=== PATIENT | male | born 1955 | race African-American/Black ===

== ENCOUNTER 2020-08-11 18:37 | Inpatient (IN) | payer MEDICARE, OTHER ==
[~2020-08-11] VITALS: Ht 180.3 cm; Wt 123.8 kg
[2020-08-11] MEDS ORDERED: SERT50TA PO (18:43)
[2020-08-11] MEDS ORDERED: HYDR25TA4 PO (18:43)
[2020-08-11] MEDS ORDERED: [UNRECOGNIZED DRUG - CODE] PO (18:43)
[2020-08-11] MEDS ORDERED: LORA-259 PO (18:43)
[2020-08-11] MEDS ORDERED: CLON0.1T PO (18:43)
[2020-08-11] MEDS ORDERED: DIVA-78 PO (18:43)
[2020-08-11] MEDS ORDERED: HALO5TAB PO (18:43)
[2020-08-11] MEDS ORDERED: MAGNESIUM HYDROXIDE 30 ML UDC PO PRN (20:00)
[2020-08-11] MEDS ORDERED: ZOLPIDEM TARTRATE 5 MG TABLET PO PRN (20:00)
[2020-08-11] MEDS ORDERED: ACETAMINOPHEN 325 MG TABLET PO PRN (20:00)
[2020-08-11] MEDS ORDERED: MAG HYDROX/AL HYDROX/SIMETH 30 ML UDC PO PRN (20:00)
[2020-08-11 20:03] VITALS: BP 150/90
--- NOTE | 2020-08-11 20:12 | NUR ---
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 PATIENT COVERED HIS BODY & HAS A MASK ON, SKIN IS NOT VISIBLE AT THIS TIME. GETS AGITATED VERY EASILY, UNCOOPERATIVE, AGGRESSIVE, NON COMPLAINT, LABILE, HYPERVERBAL, PARANOID, TALKS TO HIMSELF, LOUD, PATIENT BECAME MORE AGGRESSIVE & AGITATED WHEN RE-APPROACHED TO EXPLAIN ANYTHING. CALMS DOWN WHEN GAVE SPACE. WILL CONTINUE TO MONITOR FOR MOOD, SAFETY & BEHAVIOR.
[2020-08-11] MEDS ORDERED: BLOOD SUGAR DIAGNOSTIC 1 EACH STRIP IN ONE (21:00)
[2020-08-11] MEDS ORDERED: OLANZAPINE 10 MG VIAL IM ONE (21:30)
--- NOTE | 2020-08-11 21:31 | NUR ---
GPS RN NOTE, PATIENT IS REQUESTING INJECTION AT THIS TIME. OFFERED PO ATIVAN 1 MG PO Q6HR PRN 3 TIMES AND STILL PATIENT REFUSED STATING, " NO I DON'T WON'T A PILL GIVE ME A AN INJECTION TO HELP ME SLEEP ". PAGED DR ORTIZ AND INFORMED HER OF MY FINDINGS. DR ORTIZ ORDERED ZYPREXA 10 MG IM ONCE. ALL ORDERS NOTED AND CARRIED OUT WILL CONTINUE TO MONITOR THIS PATIENT WITH THE HELP OF STAFF.
--- NOTE | 2020-08-11 21:48 | NUR ---
GPS RN NOTE, PATIENT IS STILL REQUESTING INJECTION. LESS RESTRICTIVE MEASURES ATTEMPTED IE DIVERSION, 1 TO 1 INTERACTION, OFFERED PO MEDICATION, AND REORIENTATION WAS TRIED WITH NO POSITIVE EFFECT. DR ORTIZ ORDERED ZYPREXA 10MG IM ONCE. GAVE ZYPREXA 10 MG IM ONCE IN HIS LEFT VENTROGLUTEAL WITH THE HELP OF STAFF AND SECURITY ON STAND BY. PATIENT TOLERATE PROCEDURE WELL WITH OUT INCIDENT. ALL ORDERS NOTED AND CARRIED OUT WILL CONTINUE TO MONITOR THIS PATIENT.
[2020-08-11 22:10] VITALS: BP 145/80
--- NOTE | 2020-08-11 23:08 | NUR ---
ADMISSION NOTES: ADMITTED THIS 65Y/O MALE PATIENT DIRECT ADMIT FROM [facility] , PT. ADMITTED TO GPS ON 5150 GD , DTO HOLD , PER HOLD, PT. AGGRESSIVE TOWARDS STAFF AND SELF HARM IDEATIONS AND HE WANTS TO DISAPPEARS , NON COMPLIANT WITH MEDS NOT LISTING TO DIRECTIONS AND REAPTING HE WILL KILL HIMSELF IF DISCHARGED,UPON FACE TO FACE ASSESSMENT PATIENT IS A&O X ,3 ,ANXIOUS,HYPERVERBAL,LOUD TALIKG TO SELF ,MANIC, DELUSIONAL ,DISORGNIZED,GUARDED, DISHEVELLED , UNCOOPERTIVE, UNPREDICTABLE , RACES , USING UNAPPROPRIATE LANGUAGE WITH STAFF, NEEDY DEMENDING , NOT FOLLOWING DIRECTIONS, DENIES SI /HI AT THIS TIME, PT. IS POOR HISTORIAN, POOR INSIGHT ,POOR JUDGEMENT , PT. REFUSED TO SIGNS ADMISSION CONSENT PAPERS ,DUE TO ANGERY, REFUSED FACE PHOTO FOR CHART, REFUSED SKIN ASSESSMENT,ENCOURGED X3 PT. STRONGLY REFUSED, BOTH MD AWARE AND NOTIFIED OF THE ADMISSION, BELONGINGS CONTRABAND WERE DONE ,PT. RIGHTS DISCUSS BY SYSTEM ARCHIVE ANALYST , PROVIDE THE PT. WITH HANDBOOK, AND MEDICATIONS GUIDE, ENVIRONMENTAL SAFETY CHECK DONE, ENCOURAGED PT. VERBALIZED ANY FEELING CONCERN TO STAFF, ORIENT TO UNIT POLICY, NO ACUTE DISTRESS NOTED,VITAL SIGNS WNL ,DENIES ANY PAIN AT THIS TIME,WILL CONTINUE TO MONITOR FOR Q15 SAFETY AND BEHAVIOR.
--- NOTE | 2020-08-12 05:51 | NUR ---
RN NOTE: REFUSED SKIN ASSESSMENT PT. REFUSED SKIN ASSESSMENT X 3 DESPITE OF RISKS & BENEFIT EXPLANATIONS, GETS AGITATED VERY EASILY, UNCOOPERATIVE, NON COMPLAINT, LABILE, HYPERVERBAL, PARANOID, WILL CONTINUE TO MONITOR FOR MOOD, SAFETY & BEHAVIOR.
[2020-08-12] MEDS ORDERED: OLANZAPINE 10 MG VIAL IM ONE (06:30)
--- NOTE | 2020-08-12 06:34 | NUR ---
GPS RN NOTE, PATIENT THREATENING PHYSICAL HARM TO STAFF, DELUSIONAL, AGITATED, YELLING, AND LESS RESTRICTIVE MEASURES ATTEMPTED IE DIVERSION, OFFERED PO MEDICATION, 1 TO 1 INTERACTION, AND REORIENTATION WAS TRIED WITH NO POSITIVE EFFECT. PAGED DR ORTIZ AND INFORMED HER OF MY FINDINGS. DR ORTIZ ORDERED ZYPREXA 10MG IM ONCE. PATIENT GIVEN AFOREMENTIONED MEDICATION IN HIS RIGHT VENTROGLUTEAL WITH THE HELP OF STAFF AND SECURITY. PATIENT TOLERATE PROCEDURE WELL. ALL ORDERS NOTED AND CARRIED OUT WILL CONTINUE TO MONITOR THE PATIENT.
[2020-08-12 07:57] LABS: BASOPHILS # (AUTO) 0.1 /CMM (0.0-0.2); BASOPHILS % (AUTO) 0.9 % (0.0-2.0); EOSINOPHILS % (AUTO) 1.7 % (0.0-6.0); HEMATOCRIT 43 % (39-51); HEMOGLOBIN 14.1 g/dL (13.5-17.5); LYMPHOCYTES # (AUTO) 2.3 /CMM (0.8-4.8); LYMPHOCYTES % (AUTO) 35.3 % (20.0-44.0); MEAN CORPUSCULAR HGB CONC 33 g/dl (31.0-36.0); MEAN CORPUSCULAR VOLUME 92 fL (80-96); MONOCYTES # (AUTO) 1.1 /CMM (0.1-1.30); MONOCYTES % (AUTO) 17.1 % (2.0-12.0); NEUTROPHILS # (AUTO) 2.9 /CMM (1.8-8.9); PLATELET COUNT (AUTO) 245 /CMM (150-450); RED BLOOD CELL COUNT(AUTO) 4.63 MIL/uL (4.5-6.0); WHITE BLOOD COUNT (AUTO) 6.5 K/uL (4.3-11.0)
[2020-08-12 08:00] VITALS: BP 118/77
[2020-08-12 08:12] LABS: CREATININE 1.1 mg/dL (0.6-1.3); POTASSIUM 3.9 mmol/L (3.5-5.1)
[2020-08-12] MEDS: LORAZEPAM 1 MG TABLET PO PRN (08:36)
[2020-08-12] MEDS: HYDROCHLOROTHIAZIDE 25 MG TABLET PO SCH (08:37)
--- NOTE | 2020-08-12 08:37 | NUR ---
GPS RN NOTE PATIENT IS ANXIOUS, AGITATED, SCREAMING. LORAZEPAM 1MG PRN GIVEN. WILL CONTINUE BEHAVIOR Q15 FOR BEHAVIOR AND SAFETY.
[2020-08-12] MEDS ORDERED: OLANZAPINE 10 MG VIAL IM STA (09:40)
[2020-08-12] MEDS ORDERED: LORAZEPAM INJ 2 MG/ML VIAL IM STA (09:40)
--- NOTE | 2020-08-12 09:56 | NUR ---
GPS RN NOTE PATIENT IS DELUSIONAL, AGITATED, YELLING AND SCREAMING. TELLING THE STAFF PROSTITUTES AND SAYING "I DON'T TRUST YOU" RUNSTITCHING MACHINE OPERATOR INFORMED DR ORTIZ. DR ORTIZ ORDERED ZYPREXA 10MG IM ONCE AND LORAZEPAM 1MG IM. ADMINISTERED MEDS TO LEFT VENTROGLUTEAL WITH THE HELP OF STAFF AND SECURITY. ALL ORDERS NOTED AND CARRIED OUT WILL CONTINUE TO MONITOR Q15 FOR PATIENT'S BEHAVIOR AND SAFETY. Addendum: 08/12/20 at 1049 by REZA DICKEY RN PT VOLUNTARILY ASKED FOR THE SHOT. IS MADE AWARE. PT ACCEPTED THE INJECTION WITHOUT PHYSICAL HOLD. BP 120/76 WI 84 RR 16 SA02 95%
[2020-08-12 11:29] LABS: EOSINOPHILS % (MANUAL) 2 % (0-4); LYMPHOCYTES % (MANUAL) 40 % (16-48); MONOCYTES % (MANUAL) 15 % (0-11.0); NEUTROPHILS % (MANUAL) 43 (42-76)
[2020-08-12 12:42] LABS: ALBUMIN 3.5 g/dL (3.4-5.0); BILIRUBIN,DIRECT 0.1 mg/dL (0.0-0.2); BILIRUBIN,TOTAL 0.3 mg/dL (0.2-1.0); TOTAL PROTEIN, SERUM 7.7 g/dL (6.4-8.2)
[2020-08-12 16:00] VITALS: BP 95/64
[2020-08-12] MEDS: DIVALPROEX SODIUM 500 MG TABLET.DR PO SCH (18:56)
[2020-08-12 20:00] VITALS: BP 114/56
[2020-08-12] MEDS: BENZTROPINE MESYLATE (1 MG) 1 MG TABLET PO SCH (21:00)
[2020-08-12] MEDS: risperiDONE 1 MG TABLET PO SCH (21:00)
--- NOTE | 2020-08-12 21:41 | NUR ---
Pt refused 2100 meds Cogentin 1 mg and Risperdal 2 mg po. Offered x 3 and explained risk and benefits. Still refused. Pt states, "i dont want to take any medications." Charge nurse RN aware. Will continue to monitor. Frequent visual check done for safety.
[2020-08-13 08:00] VITALS: BP 149/93
[2020-08-13] MEDS: HYDROCHLOROTHIAZIDE 25 MG TABLET PO SCH (08:04)
[2020-08-13] MEDS: BENZTROPINE MESYLATE (1 MG) 1 MG TABLET PO SCH ×2 (08:04→21:00)
[2020-08-13] MEDS: DIVALPROEX SODIUM 500 MG TABLET.DR PO SCH ×3 (08:04→16:30)
[2020-08-13] MEDS: risperiDONE 1 MG TABLET PO SCH ×2 (08:08→16:31)
--- NOTE | 2020-08-13 09:00 | NUR ---
RN NOTE- LABILE INTRUSIVE LOUD REQUESTING RX, NAME CALLING AND PROFANITY EXPRESSED. PO INTAKE GOOD DISORGANIZED AND PSYCHOTIC
--- NOTE | 2020-08-13 09:05 | NUR ---
RN NOTE- PT ESCALATING. REQUESTING IM RX. DR ORTIZ ORDERED ZYPREXA 10 MG AND ATIVAN 1 MG IM STAT. COMPLIED
[2020-08-13] MEDS ORDERED: OLANZAPINE 10 MG VIAL IM STA (09:09)
[2020-08-13] MEDS ORDERED: LORAZEPAM INJ 2 MG/ML VIAL IM STA (09:09)
--- NOTE | 2020-08-13 09:36 | NUR ---
RN NOTE- EMERGENCY IM RX ADMINISTERED. ZYPREXA 10 MG AND ATIVAN 1 MG . ADMINISTERED W STAFF ASSIST. WASTED 1 MG ATIVAN W RAFAELA RN. DID NOT SCAN . DISPOSED OF VIALS BEFORE SCANNING.
[2020-08-13 16:00] VITALS: BP 135/90
[2020-08-13 20:00] VITALS: BP 132/65
[2020-08-13] MEDS: OLANZAPINE 10 MG TABLET PO SCH (21:23)
--- NOTE | 2020-08-13 21:23 | NUR ---
GPS-RN NOTE: MEDICATION REFUSAL PATIENT REFUSED TO TAKE ZYPREXA AND CONGENTIN AT 2100. EDUCATED PATIENT REGARDING MEDICATION COMPLIANCE BUT PATIENT CONTINUED TO REFUSE AND BECAME AGITATED WHEN OFFERING SCHEDULED MEDS.
[2020-08-14 08:00] VITALS: BP 128/77
[2020-08-14] MEDS: HYDROCHLOROTHIAZIDE 25 MG TABLET PO SCH (08:49)
[2020-08-14] MEDS: BENZTROPINE MESYLATE (1 MG) 1 MG TABLET PO SCH ×2 (08:49→21:00)
[2020-08-14] MEDS: DIVALPROEX SODIUM 500 MG TABLET.DR PO SCH ×4 (08:49→17:06)
[2020-08-14] MEDS: risperiDONE 1 MG TABLET PO SCH ×3 (08:49→17:07)
--- NOTE | 2020-08-14 10:00 | NUR ---
[facility] Contact: SW called [facility] ([phone]) and spoke to Corrie who stated that the pt has not been in their facility for 7 years.
--- NOTE | 2020-08-14 10:05 | NUR ---
[facility] Contact: SW called [facility] ([phone]) and was unable to make contact with the admissions department to verify the pts residence.
--- NOTE | 2020-08-14 10:10 | NUR ---
Initial Discharge Plan: Pt cannot verify where he came from and SW is also unable to do the same at this time. TONY will work with the pt and the MD regarding appropriate discharge planning, SW will form a safe and proper discharge plan.
--- NOTE | 2020-08-14 13:28 | NUR ---
RN NOTE: MEDICATION REFUSAL PT REFUSED 1300 DEPAKOTE. ATTEMPTED TO EDUCATE PT RE IMPORTANCE OF MEDICATION COMPLIANCE. PT CONT'D TO REFUSE X 3.
[2020-08-14 16:00] VITALS: BP 135/80
--- NOTE | 2020-08-14 17:14 | NUR ---
RN NOTE: MEDICATION REFUSAL PT REFUSED 1700 RISPERDAL AND DEPAKOTE. ATTEMPTED TO EDUCATE PT RE IMPORTANCE OF MEDICATION COMPLIANCE. PT CONT'D TO REFUSE X 3. PT IS PARANOID "HOW CAN I TRUST YOU. I AM IN [place] [employer]. THEY TRIED TO GIVE ME A SEX CHANGE AND MAKE ME CAICEDO".
[2020-08-14 20:15] VITALS: BP 125/63
[2020-08-14] MEDS: OLANZAPINE 10 MG TABLET PO SCH (22:00)
[2020-08-15 08:00] VITALS: BP 151/86
[2020-08-15] MEDS ORDERED: OLANZAPINE 10 MG VIAL IM STA (08:01)
--- NOTE | 2020-08-15 08:02 | NUR ---
RN NOTE- PT HYPERSEXUAL AND INAPPROPRIATE W STAFF. NOT REDIRECTABLE, ESCORTED TO ROOM AND INFORMED OF HIS BEHAVIOR BEING INAPPROPRIATE. PT USING PROFANITY W THIS RN. DR ORTIZ NOTIFIED. ORDERED ZYPREXA 10 MG IM STAT. COMPLIED
[2020-08-15] MEDS: HYDROCHLOROTHIAZIDE 25 MG TABLET PO SCH (08:17)
[2020-08-15] MEDS: BENZTROPINE MESYLATE (1 MG) 1 MG TABLET PO SCH ×2 (08:17→21:00)
[2020-08-15] MEDS: risperiDONE 1 MG TABLET PO SCH ×3 (08:17→16:12)
[2020-08-15] MEDS: DIVALPROEX SODIUM 500 MG TABLET.DR PO SCH (08:17)
--- NOTE | 2020-08-15 08:30 | NUR ---
RN NOTE: MEDICATION REFUSAL AND EMERGENCY IM PT REFUSED ALL 0900 MEDICATIONS. PT SEXUALLY INAPPROPRIATE WITH STAFF. VERBALLY ABUSIVE AND THREATENING DIAL SCREW ASSEMBLER. PT REQUESTING A "SHOT". EMERGENCY IM ZYPREXA 10MG ADMINISTERED TO RIGHT GLUTEUS. PT JOHN WELL
[2020-08-15] MEDS: VALSARTAN 80 MG TABLET PO SCH (12:00)
--- NOTE | 2020-08-15 12:29 | NUR ---
DPOA Contact: TONY called the pts DPOA, Mack ([phone]), and left a voicemail stating that the TONY would like to discuss the pts treatment with him. Addendum: 08/15/20 at 1231 by TONY HAMILTON Alejandro
--- NOTE | 2020-08-15 12:32 | NUR ---
Payee Contact: TONY called the pts payee, Mack ([phone]), who stated that the pt resides at his facility located at [address] [place] [address] and states that it is an independent assisted living. SW recommended that when there is a discharge date he can come and assess the pt. SW also stated that the plan is to Riese the pt and then provide a long acting shot that he would need to follow up. Pts payee stated that shot has helped a lot of his residents. SW stated that she will remain in contact with him.
[2020-08-15] MEDS ORDERED: OXCARBAZEPINE 150 MG TABLET PO SCH (13:00)
[2020-08-15] MEDS: OXCARBAZEPINE 150 MG TABLET PO SCH ×3 (13:00→16:12)
[2020-08-15] MEDS ORDERED: OXCARBAZEPINE 150 MG TABLET PO ONE (13:30)
[2020-08-15 16:00] VITALS: BP 142/81
--- NOTE | 2020-08-15 19:41 | NUR ---
RN NOTE PATIENT IS SLEEPING AT THIS TIME & REFUSED VITALS.
--- NOTE | 2020-08-15 21:36 | NUR ---
GPS-RN NOTE: MEDICATION REFUSAL PATIENT REFUSED TO TAKE COGENTIN AT 2100. EDUCATED PATIENT REGARDING MEDICATION COMPLIANCE BUT PATIENT CONTINUED TO REFUSE AND BECAME AGITATED WHEN OFFERING SCHEDULED MEDS.
[2020-08-15] MEDS: OLANZAPINE 10 MG TABLET PO SCH (22:27)
--- NOTE | 2020-08-15 22:50 | NUR ---
RN NOTE PATIENT HAD PLENTY OF SNACK & PO FLUIDS AT THIS TIME & TOLERATED WELL.
[2020-08-16] MEDS ORDERED: VITAMINS A AND D 56.7 GM TUBE TP PRN ×2 (02:30→08:25)
[2020-08-16 08:00] VITALS: BP 138/74
[2020-08-16] MEDS: VALSARTAN 80 MG TABLET PO SCH (08:29)
[2020-08-16] MEDS: OXCARBAZEPINE 150 MG TABLET PO SCH ×3 (08:30→17:04)
[2020-08-16] MEDS: risperiDONE 1 MG TABLET PO SCH ×3 (08:30→17:04)
[2020-08-16] MEDS: BENZTROPINE MESYLATE (1 MG) 1 MG TABLET PO SCH ×2 (08:30→21:25)
--- NOTE | 2020-08-16 10:07 | NUR ---
Pt. refused Echocardiogram, explained on the importance and still refusing and verbally abusive.
[2020-08-16] MEDS: VITAMINS A AND D 56.7 GM TUBE TP SCH ×2 (13:09→17:47)
--- NOTE | 2020-08-16 13:29 | NUR ---
Group Note: SW encouraged the pt to attend group therapy on 08/16/20 at 1pm regarding the topic of discharge planning and the pt refused to attend. SW then conducted an individual intervention at bedside. Pt informed the SW that he wanted to be discharged to an alternate facility and stated, "I want a place with a big tub. I cannot pay for a swimming pool." SW stated that she will secure alternate placement.
[2020-08-16 16:00] VITALS: BP 134/77
--- NOTE | 2020-08-16 19:30 | NUR ---
GPS RN NOTE, RECEIVED PATIENT AWAKE AND IN BED, NO S/S OR COMPLAINTS OF PAIN AT THIS TIME. PATIENT IS DISPLAYING NO S/S OF APPARENT DISTRESS AT THIS TIME. PATIENT BREATHING IS UNLABORED WITH EQUAL RISE AND FALL OF THE CHEST. PATIENT IS ALERT AND ORIENTED X 1-2 ON ROOM AIR WITH A SPO2 99%. PATIENT IS COMPLIANT WITH MEDICATIONS AT TIMES, HYPERVERBAL, ANXIOUS AT TIMES, VERBALLY ABUSIVE TOWARD STAFF, NEEDY, NEEDS REDIRECTION, AND COOPERATIVE. PATIENT DENIES SUICIDAL AND HOMICIDAL IDEATIONS AT THIS TIME. PATIENT ASSISTED WITH TURNING AND REPOSITIONING Q2HR AND PRN FOR COMFORT AND CIRCULATION. PATIENT HAS NO NEEDS AT THIS TIME. PATIENT EDUCATED ON THE USE OF THE CALL PITTS. PATIENT BED SIDE RAILS UP X 2 FOR SAFETY. PATIENT BED IS LOCKED, LOW, WITH BED ALARM ON. WILL CONTINUE TO MONITOR THIS PATIENT Q15 MINUTES WITH THE HELP OF STAFF TO MAINTAIN SAFETY.
[2020-08-16 19:40] VITALS: BP 129/73
[2020-08-16] MEDS: OLANZAPINE 10 MG TABLET PO SCH (21:25)
[2020-08-16] MEDS ORDERED: risperiDONE 1 MG TABLET PO SCH (22:00)
[2020-08-17 08:00] VITALS: BP 130/77
[2020-08-17] MEDS: risperiDONE 1 MG TABLET PO SCH ×6 (08:36→21:12)
[2020-08-17] MEDS: OXCARBAZEPINE 150 MG TABLET PO SCH ×3 (08:36→16:00)
[2020-08-17] MEDS: VALSARTAN 80 MG TABLET PO SCH (08:36)
[2020-08-17] MEDS: BENZTROPINE MESYLATE (1 MG) 1 MG TABLET PO SCH ×3 (08:36→21:00)
[2020-08-17] MEDS: VITAMINS A AND D 56.7 GM TUBE TP SCH ×2 (08:36→16:00)
--- NOTE | 2020-08-17 09:00 | NUR ---
RN NOTE- PT ALERT CONFUSED WITH RAMBLING SPEECH AND INAPPROPRIATE SEXUAL TALK. IRRITABLE AND LOUD AT TIMES. MED COMPLIANT PO INTAKE GOOD.
[2020-08-17 16:00] VITALS: BP 137/82
[2020-08-17] MEDS ORDERED: OXCARBAZEPINE 150 MG TABLET PO SCH (17:00)
--- NOTE | 2020-08-17 19:40 | NUR ---
GPS RN OPENING NOTE RECEIVED PATIENT AWAKE IN BED RESTING COMFORTABLY IN NO S/S OR COMPLAINTS OF PAIN AT THIS TIME. PATIENT IS DISPLAYING NO S/S OF APPARENT DISTRESS AT THIS TIME. PATIENT'S BREATHING IS UNLABORED WITH EQUAL RISE AND FALL OF THE CHEST. PATIENT IS ALERT AND ORIENTED X2 ON ROOM AIR WITH SPO2 >95%. PATIENT IS RESPONDING TO INTERNAL STIMULI, CALM AND COOPERATIVE AT THIS TIME. PATIENT DENIES SUICIDE IDEATIONS AND HOMICIDAL IDEATIONS AT THIS TIME. PATIENT ASSISTED WITH TURNING AND REPOSITIONING Q2HR AND PRN FOR COMFORT AND CIRCULATION. PATIENT HAS NO NEEDS AT THIS TIME. PATIENT EDUCATED ON THE USE OF THE CALL LIGHT. PATIENT BED SIDE RAILS UP X 2 FOR SAFETY, BED IS LOCKED AND LOW. WILL CONTINUE TO MONITOR AND ASESS Q15 MINS WITH THE HELP OF STAFF TO MAINTAIN SAFETY.
[2020-08-17 19:57] VITALS: BP 103/54
--- NOTE | 2020-08-17 21:10 | NUR ---
RN NOTES PT REFUSED MEDICATIONS DUE FOR 2100 (COGENTIN ) AND 2200 ( RISPERDAL); EXPLAINED RISK AND BENEFITS BUT PT STILL REFUSED; RN ACKNOWLEDGED. DIETICIAN MADE AWARE. WILL CONTINUE TO ASSESS AND MONITOR THROUGHOUT THE SHIFT.
--- NOTE | 2020-08-18 06:57 | NUR ---
GPS RN CLOSING NOTES: PT IS LAYING ON BED AWAKE, ALERT AND ORIENTED X2. RESPIRATION EVEN AND UNLABORED WITH EQUAL RISE AND FALL OF THE CHEST. ALL CARE NEEDS, TREATMENT AND MEDICATIONS ADMINISTERED ANTICIPATED PER ORDER. PT IS IS NON MED COMPLIANT DURING THE SHIFT. SAFETY PRECAUTION TAKEN. BED IN LOWEST LOCKED POSITION, SIDE RAILS UPX2, CALL LIGHT WITHIN REACH. WILL ENDORSE TO CONTINUE TO MONITOR [id number] AND Q1HR PER GPS PROTOCOL FOR SAFETY, MOOD AND BEHAVIOR AND ENDORSE TO AM
[2020-08-18 08:09] VITALS: BP 116/59
[2020-08-18] MEDS: VITAMINS A AND D 56.7 GM TUBE TP SCH ×2 (08:31→17:48)
[2020-08-18] MEDS: VALSARTAN 80 MG TABLET PO SCH (09:00)
[2020-08-18] MEDS: OXCARBAZEPINE 150 MG TABLET PO SCH ×3 (09:22→17:47)
[2020-08-18] MEDS: BENZTROPINE MESYLATE (1 MG) 1 MG TABLET PO SCH ×2 (09:22→21:22)
[2020-08-18] MEDS: risperiDONE 1 MG TABLET PO SCH ×4 (09:22→21:22)
[2020-08-18 15:56] VITALS: BP 156/79
--- NOTE | 2020-08-18 18:44 | NUR ---
cooperative and med compliant,agitated at times.
--- NOTE | 2020-08-18 19:35 | NUR ---
GPS RN NOTES RECEIVED ON BED A/O X2,ABLE TO SAY "HI" TO THE NURSE.NO S/S OF RESPIRATORY DISTRESS.DENIES SI,WILL CONTINUE TO MONITOR BEHAVIOR.
[2020-08-18 20:00] VITALS: BP 143/73
[2020-08-18 20:49] VITALS: BP 143/73
[2020-08-19] MEDS: LORAZEPAM 1 MG TABLET PO PRN (04:28)
--- NOTE | 2020-08-19 04:31 | NUR ---
GS RN NOTES AWAKE,HAVING PARANOIA,ATIVAN 1 MG PO GIVEN
--- NOTE | 2020-08-19 06:27 | NUR ---
GPS RN NOTES HAD SHOWER EARLY,MED COMPLIANT,PARANOIA IMPROVED.
[2020-08-19 08:00] VITALS: BP 129/86
[2020-08-19] MEDS: VALSARTAN 80 MG TABLET PO SCH (08:33)
[2020-08-19] MEDS: OXCARBAZEPINE 150 MG TABLET PO SCH ×3 (08:36→17:35)
[2020-08-19] MEDS: BENZTROPINE MESYLATE (1 MG) 1 MG TABLET PO SCH ×2 (08:36→22:22)
[2020-08-19] MEDS: CLONIDINE HCL 0.1 MG TABLET PO PRN (08:36)
[2020-08-19] MEDS: risperiDONE 1 MG TABLET PO SCH ×4 (08:36→22:22)
[2020-08-19] MEDS: VITAMINS A AND D 56.7 GM TUBE TP SCH ×2 (08:37→17:35)
[2020-08-19] MEDS: OLANZAPINE ZYDIS 5 MG TAB.RAPDIS PO PRN (08:37)
[2020-08-19 16:00] VITALS: BP 110/57
--- NOTE | 2020-08-19 19:57 | NUR ---
GPS RN NOTES: PATIENT REFUSED WEEKLY SKIN ASSESSMENT.
[2020-08-19 20:00] VITALS: BP 131/70
--- NOTE | 2020-08-20 01:17 | NUR ---
GPS RN NOTES: AMBIEN 5MG 1 TAB GIVEN PO PRN ORDERED AT 3. WILL CONTINUE TO MONITOR.
[2020-08-20] MEDS: LORAZEPAM 1 MG TABLET PO PRN (03:13)
--- NOTE | 2020-08-20 03:14 | NUR ---
GPS RN NOTES: PATIENT AGITATED AND RESTLESS. ATIVAN MG 1 TAB GIVEN PO PRN ORDERED AT 0313. WILL CONTINUE TO MONITOR.
--- NOTE | 2020-08-20 07:04 | NUR ---
GPS RN CLOSING NOTES: PATIENT IS LAYING ON BED, AWAKE, A/O X2. PATIENT SLEPT 3HRS THIS SHIFT. NO S/S OF DISTRESS. RESPIRATION EVEN AND UNLABORED WITH EQUAL RISE AND FALL OF THE CHEST ON ROOM AIR. ALL PATIENT CARE NEEDS HAVE BEEN MET ANTICIPATED. BED IN LOWEST POSITION AND LOCKED WITH SIDE RAILS UP X2. WILL CONTINUE TO MONITOR FOR SAFETY, MOOD AND BEHAVIOR AND ENDORSE TO AM SHIFT.
[2020-08-20 08:00] VITALS: BP 120/72
[2020-08-20] MEDS: BENZTROPINE MESYLATE (1 MG) 1 MG TABLET PO SCH ×2 (08:55→21:04)
[2020-08-20] MEDS: VITAMINS A AND D 56.7 GM TUBE TP SCH ×2 (08:55→16:18)
[2020-08-20] MEDS: risperiDONE 1 MG TABLET PO SCH ×2 (08:55→13:15)
[2020-08-20] MEDS: VALSARTAN 80 MG TABLET PO SCH (08:55)
--- NOTE | 2020-08-20 09:00 | NUR ---
RN NOTE- PT OPPOSITIONAL AT TIMES PSYCHOTIC INAPPROPRIATE DENIES ALL PO INTAKE GOOD
[2020-08-20] MEDS: OXCARBAZEPINE 150 MG TABLET PO SCH ×3 (10:50→16:18)
[2020-08-20] MEDS ORDERED: risperiDONE 1 MG TABLET PO SCH ×4 (13:00→20:00)
[2020-08-20 16:00] VITALS: BP 138/73
[2020-08-20 20:00] VITALS: BP 131/70
[2020-08-21 08:00] VITALS: BP 109/67
[2020-08-21] MEDS: risperiDONE 1 MG TABLET PO SCH (08:32)
[2020-08-21] MEDS: BENZTROPINE MESYLATE (1 MG) 1 MG TABLET PO SCH ×2 (08:32→21:05)
[2020-08-21] MEDS: OXCARBAZEPINE 150 MG TABLET PO SCH ×4 (08:32→18:10)
[2020-08-21] MEDS: VALSARTAN 80 MG TABLET PO SCH (08:33)
[2020-08-21] MEDS: VITAMINS A AND D 56.7 GM TUBE TP SCH ×2 (08:34→16:23)
--- NOTE | 2020-08-21 09:00 | NUR ---
RN NOTE- PT CONTINUES TO BE PSYCHOTIC INAPPROPRIATE AT TIMES THOUGH BETTER DENIES ALL PO INTAKE GOOD
[2020-08-21] MEDS: OLANZAPINE ZYDIS 5 MG TAB.RAPDIS PO PRN ×2 (10:27→18:10)
--- NOTE | 2020-08-21 10:27 | NUR ---
RN NOTE- PT LOUD IRRITABLE . ZYPREXA 5 MG PO GIVEN
--- NOTE | 2020-08-21 12:28 | NUR ---
RN NOTE- HOLDING TRILEPTAL [address]TIZ
--- NOTE | 2020-08-21 13:44 | NUR ---
Individual Intervention: SW met with the pt in the pts room and discussed the pts discharge plan. Pt stated that he does not want to return to the facility that he was in and stated that he does not "want to see his white ass." SW stated that the pt can be discharged elsewhere as it is his choice but pt was focused on having someone else be his payee. Pt asked the SW if she would be his payee or anyone else in the hospital and SW stated that goes against our policies. Pt repeatedly asked the SW to be his payee and SW stated that she cannot and will discuss his discharge plan with him at another time.
--- NOTE | 2020-08-21 13:49 | NUR ---
Payee Contact: TONY called the pts payee, Mack ([phone]), and left a voicemail to inform him that he can assess the pt on and asked that he give the SW a call back.
[2020-08-21 16:00] VITALS: BP 154/85
[2020-08-21] MEDS ORDERED: PALIPERIDONE 234 MG IM ONE (16:00)
--- NOTE | 2020-08-21 18:12 | NUR ---
RN NOTE- PER DR ORTIZ, HELD 1300 AND 1700 DOSES TRILEPTAL. GAVE INVEGA IM AROUND 1600. PT BEGAN ESCALATING IN LAST THIRTY MINUTES, SCREAMING POSTURING AND THREATENING. DR ORTIZ NOTIFIED. ORDERED 1700 DOSE TRILEPTAL TO BE GIVEN AND ZYPREXA 5 MG PO STAT. COMPLIED.
[2020-08-21 20:43] VITALS: BP 132/62
--- NOTE | 2020-08-22 07:30 | NUR ---
PT RECEIVED RESTING COMFORTABLY IN BED. NO S/S OR C/O PAIN OR DISTRESS NOTED. SIDE RAILS UP X2, WILL CONTINUE PLAN OF CARE.
[2020-08-22 08:00] VITALS: BP 122/77
[2020-08-22] MEDS: OXCARBAZEPINE 150 MG TABLET PO SCH ×3 (08:00→16:16)
[2020-08-22] MEDS ORDERED: OLANZAPINE 10 MG VIAL IM ONE (09:00)
[2020-08-22] MEDS: VITAMINS A AND D 56.7 GM TUBE TP SCH ×2 (09:00→16:18)
[2020-08-22] MEDS: BENZTROPINE MESYLATE (1 MG) 1 MG TABLET PO SCH ×2 (09:00→21:10)
--- NOTE | 2020-08-22 09:03 | NUR ---
GPS RN NOTE: T.O. DR ORTIZ ORDER IF PATIENT REFUSED ZYPREXA 5 MG PO PRN GIVE ZYPREXA 5 MG IM ONCE.ORDER PLACED AND CARED OUT.
--- NOTE | 2020-08-22 10:00 | NUR ---
PT REFUSED MEDS NURSING TEACHING PERFORMED TO EXPLAIN IMPORTANCE OF MEDICATIONS BUT PATIENT CONTINUED TO ADAMANTLY REFUSE AND REQUESTED FOR A SHOT INSTEAD. MD NOTIFIED AND ORDER CARRIED OUT.
[2020-08-22 16:00] VITALS: BP 129/77
[2020-08-22] MEDS: OLANZAPINE ZYDIS 5 MG TAB.RAPDIS PO SCH (16:16)
--- NOTE | 2020-08-22 18:35 | NUR ---
CHANGE OF SHIFT REPORT PT RESTING COMFORTABLY IN BED. NO S/S OR C/O PAIN OR DISTRESS NOTED. SIDE RAILS UP X2, PT KEPT CLEAN, DRY, AND COMFORTABLE. NO SIGNIFICANT CHANGE SINCE PREVIOUS SHIFT.
[2020-08-22 20:26] VITALS: BP 149/79
[2020-08-23 08:00] VITALS: BP 146/83
[2020-08-23] MEDS: OXCARBAZEPINE 150 MG TABLET PO SCH ×3 (08:30→16:12)
[2020-08-23] MEDS: BENZTROPINE MESYLATE (1 MG) 1 MG TABLET PO SCH ×2 (08:30→21:00)
[2020-08-23] MEDS: OLANZAPINE ZYDIS 5 MG TAB.RAPDIS PO SCH ×2 (08:30→16:12)
[2020-08-23] MEDS: VITAMINS A AND D 56.7 GM TUBE TP SCH ×2 (09:49→16:15)
--- NOTE | 2020-08-23 12:05 | NUR ---
Placement Interview: TONY spoke to board and care microphone boom operator and payee, Mack [phone], who came to the unit to assess the pt at his bedside. Mack stated that pt does appear stable at this time. He will consider the patient when he is more stable. TONY will continue to follow up with discharge plan and will arrange for alternative placement if pt is not stable to return to the independent living.
[2020-08-23] MEDS: LORAZEPAM 1 MG TABLET PO PRN (12:08)
[2020-08-23 16:00] VITALS: BP 122/86
[2020-08-23 20:10] VITALS: BP 122/75
[2020-08-23 20:16] VITALS: BP 126/75
--- NOTE | 2020-08-23 20:19 | NUR ---
RN NOTE: PATIENT IS ANXIOUS & RESTLESS, KEEPS PRESSING CALL LIGHT BUTTON EVERY 2-3 MINUTES, GETTING UPSET, AGITATED WHEN EXPLAINED. ALL NEEDS HAVE BEEN MET. OFFERED ATIVAN PRN BUT PATIENT REFUSED TO TAKE AT THIS TIME, STATED," I AM NOT TAKING ANY MEDICINE, DON'T COME HERE ANYMORE." WILL CONTINUE TO MONITOR.
--- NOTE | 2020-08-23 21:55 | NUR ---
RN NOTE: MEDICATION REFUSAL PATIENT REFUSED TO TAKE COGENTIN AT 2100 ORDERED DESPITE OF RISKS & BENEFITS EXPLANATIONS. UNCOOPERATIVE, NON COMPLAINT, GETS AGITATED & AGGRESSIVE WHEN REAPPROACHED, PATIENT DOES NOT WANT THE NURSE TO GO TO HIS ROOM & STATED," GET OUT FROM HERE, DON'T COME BACK." WILL CONTINUE TO MONITOR.
[2020-08-24 08:00] VITALS: BP 131/95
[2020-08-24] MEDS: OXCARBAZEPINE 150 MG TABLET PO SCH ×3 (08:19→17:46)
[2020-08-24] MEDS: BENZTROPINE MESYLATE (1 MG) 1 MG TABLET PO SCH ×2 (08:19→21:03)
[2020-08-24] MEDS: OLANZAPINE ZYDIS 5 MG TAB.RAPDIS PO SCH ×2 (08:19→17:46)
--- NOTE | 2020-08-24 08:30 | NUR ---
RN NOTE- COVID ORDERED FOR PT. ATTEMPTED TO OBTAIN. PT REFUSED
[2020-08-24] MEDS: VITAMINS A AND D 56.7 GM TUBE TP SCH ×2 (09:18→17:50)
--- NOTE | 2020-08-24 13:13 | NUR ---
SNF Referral: TONY faxed a referral to [facility] with attn to Abbe to the fax number: [phone].
[2020-08-24 16:00] VITALS: BP 142/82
[2020-08-24 20:01] VITALS: BP 135/76
[2020-08-25 08:00] VITALS: BP 142/80
--- NOTE | 2020-08-25 08:10 | NUR ---
GPS RN NOTE: RECEIVED PT ALERT AWAKE O X 2. ON RA, NO BREATHING DISTRESS NOTED. DENIES PAIN & DISCOMFORT. AMBULATORY. PARTICIPATING IN CARE. REORIENTATION PROVIDED. PT DENIES SI/HI. SAFETY MEASURES OBSERVED. ENCOURAGE PT TO CALL FOR ASSISTANCE. VERBALIZED UNDERSTANDING. CONTINUE TO MONITOR [id number] FOR SAFETY.
[2020-08-25] MEDS: OLANZAPINE ZYDIS 5 MG TAB.RAPDIS PO SCH ×3 (08:13→17:08)
[2020-08-25] MEDS: BENZTROPINE MESYLATE (1 MG) 1 MG TABLET PO SCH ×2 (08:13→20:59)
[2020-08-25] MEDS: OXCARBAZEPINE 150 MG TABLET PO SCH ×4 (08:13→17:08)
[2020-08-25] MEDS: VITAMINS A AND D 56.7 GM TUBE TP SCH ×2 (08:14→17:08)
[2020-08-25 16:00] VITALS: BP 158/97
[2020-08-25 16:11] VITALS: BP 158/97
[2020-08-26 08:00] VITALS: BP 141/79
[2020-08-26] MEDS: OXCARBAZEPINE 150 MG TABLET PO SCH ×3 (08:17→16:36)
[2020-08-26] MEDS: BENZTROPINE MESYLATE (1 MG) 1 MG TABLET PO SCH ×2 (09:03→20:53)
[2020-08-26] MEDS: OLANZAPINE ZYDIS 5 MG TAB.RAPDIS PO SCH ×2 (09:03→16:37)
[2020-08-26] MEDS: VITAMINS A AND D 56.7 GM TUBE TP SCH ×2 (09:06→16:43)
[2020-08-26 15:58] VITALS: BP 145/100
[2020-08-26 20:54] VITALS: BP 151/91
[2020-08-26] MEDS: LORAZEPAM 1 MG TABLET PO PRN (21:53)
--- NOTE | 2020-08-26 21:56 | NUR ---
RN NOTES: ANXIETY PT.C/O FEELING ANXIOUS ,SCREAMING ,YELLING, PARANOID, AGGRESSIVE TO WARDS STAFF ,ATIVAN 1 MG PO PRN GIVEN WILL CONTINUE TO MONITOR.
--- NOTE | 2020-08-26 23:20 | NUR ---
RN NOTE: REFUSED SKIN ASSESSMENT PT. REFUSED WEEKLY SKIN REASSESSMENT X 3 DESPITE OF RISKS & BENEFIT EXPLANATIONS, GETS AGITATED VERY EASILY, UNCOOPERATIVE, NON COMPLAINT, LABILE, HYPERVERBAL, PARANOID, WILL CONTINUE TO MONITOR FOR MOOD, SAFETY & BEHAVIOR.
[2020-08-27 08:00] VITALS: BP 154/89
[2020-08-27] MEDS: OXCARBAZEPINE 150 MG TABLET PO SCH ×3 (08:41→16:07)
[2020-08-27] MEDS: LORAZEPAM 1 MG TABLET PO PRN (08:41)
[2020-08-27] MEDS: OLANZAPINE ZYDIS 5 MG TAB.RAPDIS PO SCH ×2 (08:41→16:06)
[2020-08-27] MEDS: BENZTROPINE MESYLATE (1 MG) 1 MG TABLET PO SCH ×2 (08:42→20:17)
[2020-08-27] MEDS: VITAMINS A AND D 56.7 GM TUBE TP SCH ×2 (08:42→16:12)
--- NOTE | 2020-08-27 08:42 | NUR ---
RN NOTES: ANXIETY PT.FEELING ANXIOUS ,SCREAMING ,PARANOID, ATIVAN 1 MG PO PRN GIVEN WILL CONTINUE TO MONITOR.
--- NOTE | 2020-08-27 09:55 | NUR ---
SNF Contact: faxed updated notes to [facility] with attn to Douglas to the fax number: [phone].
--- NOTE | 2020-08-27 11:09 | NUR ---
SNF Contact: Papo ([phone]) from [facility] contacted the SW and stated that the pt was accepted to their facility.
[2020-08-27 20:00] VITALS: BP 148/77
[2020-08-28 08:00] VITALS: BP 157/83
[2020-08-28] MEDS: VITAMINS A AND D 56.7 GM TUBE TP SCH ×2 (10:08→17:39)
[2020-08-28] MEDS: OLANZAPINE ZYDIS 5 MG TAB.RAPDIS PO SCH ×2 (10:09→17:38)
[2020-08-28] MEDS: BENZTROPINE MESYLATE (1 MG) 1 MG TABLET PO SCH ×2 (10:09→21:02)
[2020-08-28] MEDS: OXCARBAZEPINE 150 MG TABLET PO SCH ×4 (10:09→17:39)
[2020-08-28] MEDS: CLONIDINE HCL 0.1 MG TABLET PO PRN (10:12)
--- NOTE | 2020-08-28 12:01 | NUR ---
Payee Contact: TONY called the pts payee, Mack ([phone]), to inform him that the pt will be discharged, 08/29/20 to [facility] ([facility]) located at [address] [place] [address]; ([phone]). TONY provided Mack with the contact information for the SNF. Mack stated that he will maintain contact with the facility and may have the pt return to his independent assisted living once he is stable.
[2020-08-28 16:00] VITALS: BP 124/72
--- NOTE | 2020-08-28 16:00 | NUR ---
relocated to [address] as not getting along with former roomate.
[2020-08-28] MEDS: LORAZEPAM 1 MG TABLET PO PRN (17:38)
--- NOTE | 2020-08-28 17:38 | NUR ---
refused some meds today.at this time given ativan for nervousness.
[2020-08-28 20:00] VITALS: BP 131/73
[2020-08-29 08:00] VITALS: BP 152/89
[2020-08-29] MEDS: VITAMINS A AND D 56.7 GM TUBE TP SCH ×2 (08:31→16:42)
[2020-08-29] MEDS: BENZTROPINE MESYLATE (1 MG) 1 MG TABLET PO SCH ×2 (08:31→21:05)
[2020-08-29] MEDS: OXCARBAZEPINE 150 MG TABLET PO SCH ×3 (08:31→16:42)
--- NOTE | 2020-08-29 09:00 | NUR ---
RN NOTE- PT CALMER MORE INTERACTIVE APPROPRIATE AND DIRECTABLE NEEDS ATTENDED MED COMPLIANT WITHDRAWN A BIT, DENIES SI HI VH FOCUS ON DC.
[2020-08-29] MEDS ORDERED: PALIPERIDONE PALMITATE 156 MG IM ONE (12:00)
[2020-08-29] MEDS ORDERED: OLANZAPINE 10 MG VIAL IM ONE (12:00)
[2020-08-29 16:00] VITALS: BP 155/88
[2020-08-29 21:23] VITALS: BP 135/57
[2020-08-30 08:00] VITALS: BP 140/78
[2020-08-30] MEDS: VITAMINS A AND D 56.7 GM TUBE TP SCH (08:39)
[2020-08-30] MEDS: OXCARBAZEPINE 150 MG TABLET PO SCH ×2 (08:40→12:15)
[2020-08-30] MEDS: BENZTROPINE MESYLATE (1 MG) 1 MG TABLET PO SCH (08:40)
[2020-08-30] MEDS ORDERED: OLANZAPINE 5 MG TABLET PO SCH (09:00)
[2020-08-30] MEDS: LORAZEPAM 1 MG TABLET PO PRN (13:58)
--- NOTE | 2020-08-30 14:02 | NUR ---
RN-NOTES PATIENT PACING IN AND OUT THE DAY ROOM VERY ANXIOUS TO BE DISCHARGE. ATIVAN 1MG P.O GIVEN PRN ORDER. WILL CONT. MONITORING FOR SAFETY AND BEHAVIOR.
--- NOTE | 2020-08-30 15:00 | NUR ---
RN-NOTES PATIENT IN THE DAY ROOM,WATCHING TV,CALM,NO ACUTE DISTRESS NOTED.
--- NOTE | 2020-08-30 15:18 | NUR ---
RN- DISCHARGE NOTES RECEIVED DISCHARGE ORDER FROM DR. ORTIZ /LEXI TALAVERA ALSO MADE AWARE WITH ORDERS. REPORT WAS GIVEN TO KERA (ELASTIC ASSEMBLER). PATIENT WAS DISCHARGE TO [facility] ([facility]). PATIENT DID NOT VERBALIZE SI/HI,DENIES VISUAL/AUDITORY HALLUCINATIONS AT THE TIME OF DISCHARGE. PATIENT REFUSED FULL BODY ASSESSMENT PRIOR TO DISCHARGE. PATIENT HAD NO FAMILY TO NOTIFY ON THE DISCHARGE. INSPECTOR W[employer] PRODUCTS BY AMBULANCE VIA GURNEY WITH TWO STAFF ASSIST.MASK WAS PROVIDED.
--- NOTE | 2020-08-30 15:40 | NUR ---
Discharge Note: Pt was discharged to [facility] ([facility]) located at [address] [place] [address]; ([phone]). Pt was transported via [facility] at 3 PM. notified pts payee Mack, , regarding this placement and Mack agrees to maintain contact with the facility. Pt agrees to the placement. Upon discharge, pt appears to be in a euthymic mood and presents with a calm affect. Pt denies suicidal and homicidal ideation and denies visual and auditory hallucinations. Pt appears to be alert and oriented x3 (person, time and situation). Pt appears to be well-groomed and ambulatory with a steady gait. Pt will continue to follow up with psychiatrist, Dr. Gudino, located at [address] [address]; and assistant prosecuting attorney, Dr. Charo Teran, located at [address] [place] [address]; . Pt signed the Choice of Vendor form which was placed in the chart. The multidisciplinary exit care form was done, printed, signed, and given to the patient.
== END 2020-08-30 15:15 | DRG 885 ==
LOC: GPS 18:37
PROVIDERS: ADMIT Psychiatry & Neurology Psychosomatic Medicine; ATTEND Nurse Practitioner Acute Care
DX: F20.9 Schizophrenia, unspecified (principal); N17.0 Acute kidney failure with tubular necrosis; F41.9 Anxiety disorder, unspecified; F10.10 Alcohol abuse, uncomplicated; I10 Essential (primary) hypertension; E66.9 Obesity, unspecified; Z73.6 Limitation of activities due to disability; R27.8 Other lack of coordination; Z91.81 History of falling; F32.9 Major depressive disorder, single episode, unspecified; Z68.38 Body mass index [BMI] 38.0-38.9, adult; E11.9 Type 2 diabetes mellitus without complications; F29 Unspecified psychosis not due to a substance or known physiological condition
CPT/HCPCS: 36415; 80048-TC; 80061-TC; 80076-TC; 85025-TC; 97116-TC; 97530-TC; J2060; J3490